=== PATIENT | female | born 1985 | race Caucasian/White ===

== ENCOUNTER 2017-06-12 09:10 | Emergency (ER) | payer BC ==
[2017-06-12 09:24] VITALS: BP 142/87; BMI 47.0
[2017-06-12] MEDS ORDERED: TORADOL 60 MG VIAL IM ONE (09:51)
--- NOTE | 2017-06-12 09:51 | DR.GENAD ---
HPI - PCP Primary Care Physician: Jose - Complaint/Symptoms Chief Complaint Doctors Comments: Patient reports that she has a history of low back pain for several has been seen by ortho in the past due psychiatica. She admits to an injury more than ten years ago and has continuted to have exacerbations of her low back. Chief Complaint:: Lower back pain - Source History Provided: Patient - Mode of Arrival Mode of Arrival: Ambulatory - Timing Onset of Chief Complaint: 06/09/17 PMH - PMH Past Medical History: Yes Past Medical History: Asthma Past Surgical History: Yes Surgical History: Cholecystectomy Past Surgical History Comment: Hernia repair. D&C - Family History History of Family Medical Conditions: Yes Family Medical History: Diabetes Mellitus, Cancer, Hypertension - Social History Does patient currently use any type of tobacco product: No Have you used tobacco products in the last 12 months: No Type of Tobacco Use: None Does any household member use tobacco: No Alcohol Use: Rarely Do you use any recreational Drugs:: Yes Lives With: Spouse Lives Where: Home - infectious screening In the last 2 months have you had wt loss of >10#?: NO Have you had fever, night sweats or hemotysis?: No Have you traveled outside the country in the last 6 months?: No Isolation: Standard ROS - Review of Systems Eyes: No Symptoms Reported ENTM: No Symptoms Reported Respiratoy: No Symptoms Reported Cardiovascular: No Symptoms Reported Gastrointestinal/Abdominal: No Symptoms Reported Genitourinary: No Symptoms Reported Neurological: No Symptoms Reported Musculoskeletal: Back Pain Integumentary: No Symptoms Reported Hematologic/Lymphatic: No Symptoms Reported Endocrine: No Symptoms Reported Psychiatric: No Symptoms Reported All Other Systems: Reviewed and Negative PE - Vital Signs Vitals: Temperature 97.8 F Pulse Rate 82 Respiratory Rate 20 Blood Pressure 142/87 O2 Sat by Pulse Oximetry 98 - General Limitations: No Limitations General Appearance: Alert, In No Apparent Distress - Head Head Exam: Normal Inspection, Atraumatic - Eyes Eye exam: Normal Appearance, PERRL, EOMI - ENT ENT Exam: Normal Exam External Ear Exam: Normal External Inspection TM/Canal Exam: Bilateral Normal Nose Exam: Normal Nose Exam Mouth Exam: Normal Inspection Throat Exam: Normal Inspection - Neck Neck Exam: Normal Inspection, Full ROM - Chest Chest Inspection: Normal Inspection - Respiratory Respiratory Exam: Normal Lung Sounds Bilat Respiratory Exam: Bilateral Clear to Auscultation - Cardiovascular Cardiovascular Exam: Regular Rate, Normal Rhythm - Abdominal Exam Abdominal Exam: Normal Inspection, Normal Bowel Sounds Abdominal Tenderness: negative: RUQ, RLQ, LUQ, LLQ, Epigastrium, Suprapubic, Diffuse, Mild, Moderate, Severe, Other - Extremities Extremities Exam: Normal Inspection, Full ROM, Tenderness (tenderness to right lower back with straight leg rasinasing) - Back Back Exam: Tenderness (Low lumbar tenderness to palpation) - Neurologic Neurological Exam: Alert, Oriented X3, CN II-XII Intact - Psychiatric Psychiatric Exam: Normal Affect - Skin Skin Exam: Warm, Dry, Intact ROR - XRAY XRAY Interpreted by: Radiologist (Lumbar spine: Negative) - Diagnosis Discharge Problem: Muscle spasm of back - Discharge Plan Condition: Stable - Follow ups/Referrals Follow ups/Referrals: IVONNE RINCON [Primary Care Provider] - 3 days - Instructions
[2017-06-12] MEDS ORDERED: TORADOL 60 MG VIAL ONE (09:54)
[2017-06-12] MEDS ORDERED: VALIUM INJ IM ONE (11:36)
[2017-06-12] MEDS ORDERED: ROCEPHIN VIAL 1 GM 1 GM in NS 50 ML IV + SPIKE MINIBAG* 50 ML IV SCH (11:45)
[2017-06-12] MEDS ORDERED: VALIUM INJ ONE (11:48)
--- NOTE | 2017-06-12 12:22 | RAD ---
HISTORY: Low back pain Study: Three views lumbar spine Comparison: None Findings: Normal alignment of the lumbar spine is maintained. Vertebral body heights are preserved. The disc spaces appear normal.No evidence for acute fracture or subluxation. Cholecystectomy clips are noted. IMPRESSION: 1. Negative lumbar radiographs. Reported By:
== END 2017-06-12 12:46 | disposition home or self-care (01) ==
LOC: ER 09:21
DX: M62.830 Muscle spasm of back (principal)
CPT/HCPCS: 72100; 96372; 99282; J1885; J3360

== ENCOUNTER 2017-12-30 14:59 | Emergency (ER) | payer BC, OTHER ==
[2017-12-30 15:13] VITALS: BMI 44.6
[2017-12-30] MEDS ORDERED: NS 1000 ML 1,000 ML ONE (16:21)
--- NOTE | 2017-12-30 16:32 | DR.GENAD ---
HPI - PCP Primary Care Physician: HARDY CASTILLO NP - Complaint/Symptoms Chief Complaint Doctors Comments: Fever, non productive cough, pelvic pain, x 5 days. She has no rhinorrhear or dysuria. Chief Complaint:: PATIENT C/O DIZZINESS, LIGHT HEADEDNESS, LOW GRADE TEMP. TEMP SPIKED TO 102.6 - Nurses notes reviewed Nurses Notes Review: Yes - Source History Provided: Patient - Mode of Arrival Mode of Arrival: Ambulatory - Timing Onset of Chief Complaint: 12/26/17 PMH - PMH Past Medical History: Yes Past Medical History: Asthma, Migraines Past Medical History Comment: ITP, AMONORRHEA, SCIATICA, EXCEMA Past Surgical History: Yes Surgical History: Cholecystectomy, Other Past Surgical History Comment: HERNIA REPAIR - Family History History of Family Medical Conditions: Yes Family Medical History: Diabetes Mellitus, Hypertension Family Medical History Comment: SPINAL STENOSIS, ARTHRITIS, GOUT, LUPUS, KIDNEY DISEASE - Social History Type of Tobacco Use: VAPE Alcohol Use: Occasionally Do you use any recreational Drugs:: No Lives With: Spouse Lives Where: Home - infectious screening In the last 2 months have you had wt loss of >10#?: YES Have you had fever, night sweats or hemotysis?: No Have you traveled outside the country in the last 6 months?: No ROS - Review of Systems Constitutional: Fever Eyes: No Symptoms Reported ENTM: No Symptoms Reported Respiratoy: Non-Productive Cough Cardiovascular: No Symptoms Reported Gastrointestinal/Abdominal: Other (suprapubic cramps) Genitourinary: No Symptoms Reported Neurological: Dizziness Musculoskeletal: No Symptoms Reported Integumentary: No Symptoms Reported Hematologic/Lymphatic: No Symptoms Reported Endocrine: No Symptoms Reported Psychiatric: No Symptoms Reported All Other Systems: Reviewed and Negative PE - Vital Signs Vitals: Temperature 99.6 F Pulse Rate 124 Respiratory Rate 20 Blood Pressure [Right Arm] 122/56 Blood Pressure 173/73 O2 Sat by Pulse Oximetry 100 - General Limitations: No Limitations General Appearance: Alert - Head Head Exam: Normal Inspection - Eyes Eye exam: Normal Appearance - ENT ENT Exam: Normal Exam - Neck Neck Exam: Normal Inspection - Chest Chest Inspection: Normal Inspection - Respiratory Respiratory Exam: Normal Lung Sounds Bilat - Cardiovascular Cardiovascular Exam: Regular Rate, +S1, +S2 - Abdominal Exam Abdominal Exam: Normal Inspection, Normal Bowel Sounds, Soft - Extremities Extremities Exam: Normal Inspection - Back Back Exam: Normal Inspection - Neurologic Neurological Exam: Alert, Oriented X3 - Psychiatric Psychiatric Exam: Normal Affect, Normal Mood - Skin Skin Exam: Warm, Dry, Intact, Normal Color ROR - Labs Reviewed Result Diagrams: 12/30/17 16:25 12/30/17 16:25 Laboratory: WBC 5.6 X10^3/uL (3.6-10.0) 12/30/17 16:25 RBC 4.96 X10^6/uL (3.5-5.4) 12/30/17 16:25 Hgb 13.8 g/dL (12.0-16.0) 12/30/17 16:25 Hct 39.7 % (36.0-47.0) 12/30/17 16:25 MCV 80.0 fL (80.0-100.0) 12/30/17 16:25 MCH 27.9 pg (27.0-34.0) 12/30/17 16:25 MCHC 34.9 g/dL (33.0-35.0) 12/30/17 16:25 RDW 13.2 % (11.6-16.5) 12/30/17 16:25 Plt Count 115 X10^3/uL (150.0-450.0) L 12/30/17 16:25 MPV 9.6 fL (7.4-11.0) 12/30/17 16:25 Neut % (Auto) 78.5 % (42.0-75.0) H 12/30/17 16:25 Lymph % (Auto) 11.8 % (21.0-51.0) L 12/30/17 16:25 [place] % (Auto) 7.5 % (0.0-13.0) 12/30/17 16:25 Eos % (Auto) 0.2 % (0.9-2.9) L 12/30/17 16:25 Baso % (Auto) 2.0 % (0.2-1.0) H 12/30/17 16:25 Neut # (Auto) 4.4 x10^3/uL (2.2-4.8) 12/30/17 16:25 Lymph # (Auto) 0.7 X10^3/uL (1.3-2.9) L 12/30/17 16:25 [place] # (Auto) 0.4 x10^3/uL (0.3-0.8) 12/30/17 16:25 Eos # (Auto) 0.0 x10^3/uL (0.0-0.2) 12/30/17 16:25 Baso # (Auto) 0.1 X10^3/uL (0.0-0.1) 12/30/17 16:25 Absolute Nucleated RBC 0.0 /100WBC 12/30/17 16:25 Sodium 138 mmol/L (136-145) 12/30/17 16:25 Corrected Sodium TNP 12/30/17 16:25 Potassium 4.0 mmol/L (3.5-5.1) 12/30/17 16:25 Chloride 101 mmol/L (98-107) 12/30/17 16:25 Carbon Dioxide 27.2 mmol/L (21-32) 12/30/17 16:25 BUN 14 mg/dL (7-18) 12/30/17 16:25 Creatinine 0.89 mg/dL (0.55-1.02) 12/30/17 16:25 Est GFR (MDRD) Af Amer > 60 (>60) 12/30/17 16:25 Est GFR (MDRD) Non-Af > 60 (>60) 12/30/17 16:25 Glucose 98 mg/dL (65-99) 12/30/17 16:25 Lactic Acid 0.7 mmol/L (0.4-2.0) 12/30/17 16:25 Calcium 8.6 mg/dL (8.5-10.1) 12/30/17 16:25 Corrected Calcium TNP 12/30/17 16:25 Total Bilirubin 0.40 mg/dL (0.2-1.0) 12/30/17 16:25 AST 31 Units/L (15-37) 12/30/17 16:25 ALT 65 Units/L (12-78) 12/30/17 16:25 Alkaline Phosphatase 76 Units/L (46-116) 12/30/17 16:25 Total Protein 8.8 g/dL (6.4-8.2) H 12/30/17 16:25 Albumin 4.0 g/dL (3.4-5.0) 12/30/17 16:25 Globulin 4.8 g/dL (2.5-4.5) H 12/30/17 16:25 Albumin/Globulin Ratio 0.8 Ratio (1.1-2.1) L 12/30/17 16:25 Specimen Type Clean catch urine 12/30/17 16:35 Urine Color Yellow (YELLOW) 12/30/17 16:35 Urine Appearance Cloudy (CLEAR) 12/30/17 16:35 Urine pH 6.0 (5.0 - 8.0) 12/30/17 16:35 Ur Specific [place] 1.010 (1.000-1.030) 12/30/17 16:35 Urine Protein 1+ (NEGATIVE) 12/30/17 16:35 Urine Glucose (UA) Negative (NEGATIVE) 12/30/17 16:35 Urine Ketones Negative (NEGATIVE) 12/30/17 16:35 Urine Occult Blood 1+ (NEGATIVE) 12/30/17 16:35 Urine Nitrite Positive (NEGATIVE) 12/30/17 16:35 Urine Bilirubin Negative (NEGATIVE) 12/30/17 16:35 Urine Urobilinogen Normal (NORMAL) 12/30/17 16:35 Ur Leukocyte Esterase 2+ (NEGATIVE) 12/30/17 16:35 Urine RBC 0-2 /HPF (NONE SEEN) 12/30/17 16:35 Urine WBC 5-10 /HPF (NONE SEEN) 12/30/17 16:35 Ur Squamous Epith Cells Few /HPF (NEGATIVE) 12/30/17 16:35 Amorphous Sediment 1+ /HPF (NEGATIVE) 12/30/17 16:35 Urine Bacteria 3+ /HPF (NEGATIVE) 12/30/17 16:35 Ur Culture Indicated? Yes/culture set up 12/30/17 16:35 S. pyogenes (TEM-PCR) Not detected (NOT DETECT) 12/30/17 16:39 - XRAY XRAY Interpreted by: Self (normal chest x-ray ) - Diagnosis Discharge Problem: UTI (urinary tract infection), Upper respiratory infection - Discharge Plan Disposition: 01 HOME, SELF-CARE Condition: Stable - Follow ups/Referrals Follow ups/Referrals: HARDY CASTILLO [Primary Care Provider] - 3 days - Instructions Instructions: Upper Respiratory Infection, Adult, [id number], Urinary Tract Infection, Adult, [id number]
[2017-12-30] MEDS ORDERED: TORADOL 30 MG VIAL IVP ONE (16:37)
[2017-12-30] MEDS ORDERED: TORADOL 30 MG VIAL ONE (16:46)
[2017-12-30 16:49] LABS: BILIRUBIN,URINE NEGATIVE (NEGATIVE); BLOOD/HEMOGLOBIN,URINE 1+ (NEGATIVE); GLUCOSE, URINE NEGATIVE (NEGATIVE); KETONES,URINE NEGATIVE (NEGATIVE); LEUKOCYTE ESTERASE ,URINE 2+ (NEGATIVE); NITRITES,URINE POSITIVE (NEGATIVE); PROTEIN,URINE 1+ (NEGATIVE); UROBILINOGEN,URINE NORMAL (NORMAL)
[2017-12-30 16:52] LABS: BASOPHILS # (AUTO) 0.1 X10^3/uL (0.0-0.1); EOSINOPHILS % (AUTO) 0.2 % (0.9-2.9); HEMATOCRIT 39.7 % (36.0-47.0); HEMOGLOBIN 13.8 g/dL (12.0-16.0); LYMPHOCYTES # (AUTO) 0.7 X10^3/uL (1.3-2.9); LYMPHOCYTES % (AUTO) 11.8 % (21.0-51.0); MEAN CORPUSCULAR HEMOGLOBIN 27.9 pg (27.0-34.0); MEAN CORPUSCULAR HGB CONC 34.9 g/dL (33.0-35.0); MEAN PLATELET VOLUME 9.6 fL (7.4-11.0); MONOCYTES # (AUTO) 0.4 x10^3/uL (0.3-0.8); MONOCYTES % (AUTO) 7.5 % (0.0-13.0); NEUTROPHILS # (AUTO) 4.4 x10^3/uL (2.2-4.8); NEUTROPHILS % (AUTO) 78.5 % (42.0-75.0); PLATELET COUNT 115 X10^3/uL (150.0-450.0); RED BLOOD COUNT 4.96 X10^6/uL (3.5-5.4); RED CELL DISTRIBUTION WIDTH 13.2 % (11.6-16.5); WHITE BLOOD COUNT 5.6 X10^3/uL (3.6-10.0)
--- NOTE | 2017-12-30 17:03 | RAD ---
Examination: Chest, PA and lateral views History: Dizzy and fever Comparison reference 08/11/2016. Findings: Continued normal heart size with clear lungs and pleural spaces. Impression: No change; no acute findings. Reported By:
[2017-12-30 17:04] LABS: LACTIC ACID 0.7 mmol/L (0.4-2.0)
[2017-12-30 17:07] LABS: BLOOD UREA NITROGEN 14 mg/dL (7-18); CALCIUM 8.6 mg/dL (8.5-10.1); CARBON DIOXIDE 27.2 mmol/L (21-32); CHLORIDE 101 mmol/L (98-107); CREATININE 0.89 mg/dL (0.55-1.02); SODIUM 138 mmol/L (136-145); eGFR BLACK RACES > 60 (>60); eGFR NON BLACK RACES > 60 (>60)
[2017-12-30 17:08] LABS: APPEARANCE,URINE CLOUDY (CLEAR); COLOR,URINE YELLOW (YELLOW)
[2017-12-30 17:23] LABS: RBC,URINE 0-2 /HPF (NONE SEEN)
[2017-12-30 17:23] LABS: ALANINE AMINOTRANSFERASE 65 Units/L (12-78); ALKALINE PHOSPHATASE 76 Units/L (46-116); ASPARTATE AMINO TRANSFERASE 31 Units/L (15-37); TOTAL PROTEIN 8.8 g/dL (6.4-8.2)
[2017-12-30 17:24] LABS: AMORPHOUS SEDIMENT,UR 1+ /HPF (NEGATIVE); BACTERIA,URINE 3+ /HPF (NEGATIVE); SQUAMOUS EPITHELIAL CELL,UR FEW /HPF (NEGATIVE)
[2017-12-30 17:31] VITALS: BP 122/56
[2017-12-31] MEDS ORDERED: LEVAQUIN TAB 500 MG PO ONE (17:30)
== END 2017-12-30 18:45 | disposition home or self-care (01) ==
LOC: ER 14:59
DX: N39.0 Urinary tract infection, site not specified (principal); J06.9 Acute upper respiratory infection, unspecified; B96.29 Other Escherichia coli [E. coli] as the cause of diseases classified elsewhere
CPT/HCPCS: 36415; 71046; 80053; 81001; 83605; 85025; 87040; 87086; 87088; 87186; 87651; 96365; 99282; 99283; A4222; J1885

== ENCOUNTER 2018-01-05 14:20 | Emergency (ER) | payer OTHER ==
[2018-01-05 14:29] VITALS: BP 129/68; BMI 46.7
[2018-01-05 14:56] LABS: BILIRUBIN,URINE NEGATIVE (NEGATIVE); BLOOD/HEMOGLOBIN,URINE NEGATIVE (NEGATIVE); GLUCOSE, URINE NEGATIVE (NEGATIVE); KETONES,URINE NEGATIVE (NEGATIVE); LEUKOCYTE ESTERASE ,URINE 1+ (NEGATIVE); NITRITES,URINE NEGATIVE (NEGATIVE); PROTEIN,URINE NEGATIVE (NEGATIVE); UROBILINOGEN,URINE NORMAL (NORMAL)
[2018-01-05 14:59] LABS: APPEARANCE,URINE CLEAR (CLEAR); COLOR,URINE YELLOW (YELLOW)
[2018-01-05 15:21] LABS: AMORPHOUS SEDIMENT,UR TRACE /HPF (NEGATIVE); BACTERIA,URINE TRACE /HPF (NEGATIVE); RBC,URINE 0-2 /HPF (NONE SEEN); SQUAMOUS EPITHELIAL CELL,UR MODERATE /HPF (NEGATIVE)
--- NOTE | 2018-01-05 15:46 | DR.URINEF ---
HPI - Time Seen Time seen: 15:40 - PCP Primary Care Physician: JONATHAN - HPI Comment HPI Comment: CURRENTLY ON MED FOR UTI. NOT GETTING BETTER. MUSCLES HURTING. - Complaint Chief Complaint Doctors Comments: FEVER, HEADACHE, WEAKNESS, FATIGUE AND DYSURIA. SICK FOR SEVERAL DAYS. Chief Complaint:: PT C/O REVURRENT UTI. PT WAS DIAGNOSED WITH UTI LAST MONDAY AND WAS GIVEN LEVAQUIN. PT STATES SHE IS STILL BATTLING WITH FEVER, AND UTI SYMPTOMS. PT ALSO STATES SHE IS HAVING A HEADACHE AND FATIGUE. - Reviewed Nurses Notes Reviewed: Yes - Source History Provided: Patient - Mode of Arrival Mode of Arrival: Ambulatory - Timing Onset of Chief Complaint: 12/26/17 - Duration Duration: Constant Duration: Days - Context Onset: Spontaneous History of: UTI - Quality Pain is: Burning - Severity Pain: Moderate (MUSCLE ACHES.) Inability to Void: None - Location Pain Location: Abdomen - Associated Signs and Symptoms Associated signs and symptoms: None PMH - PMH Past Medical History: Yes Past Medical History: Asthma, Migraines Past Medical History Comment: ITP, EXEMA Past Surgical History: Yes Surgical History: Cholecystectomy, Other - Family History History of Family Medical Conditions: Yes Family Medical History: Diabetes Mellitus, Hypertension - Social History Does patient currently use any type of tobacco product: No Have you used tobacco products in the last 12 months: Yes Type of Tobacco Use: Cigarettes Does any household member use tobacco: Yes Alcohol Use: None Do you use any recreational Drugs:: No Lives With: Family Lives Where: Home - infectious screening In the last 2 months have you had wt loss of >10#?: NO Have you had fever, night sweats or hemotysis?: Yes Have you traveled outside the country in the last 6 months?: No Isolation: Standard ROS - Review of Systems Constitutional: Weakness, Fatigue. negative: Chills, Fever Eyes: No Symptoms Reported ENTM: No Symptoms Reported Respiratoy: No Symptoms Reported Cardiovascular: No Symptoms Reported Gastrointestinal/Abdominal: Abdominal Pain Genitourinary: Dysuria Neurological: Headache Musculoskeletal: Back Pain, Muscle Pain Integumentary: No Symptoms Reported Hematologic/Lymphatic: No Symptoms Reported Endocrine: No Symptoms Reported All Other Systems: Reviewed and Negative PE - Vital Signs Vitals: Temperature 99.0 F Pulse Rate 94 Respiratory Rate 20 Blood Pressure [Right Arm] 122/56 Blood Pressure 129/68 O2 Sat by Pulse Oximetry 97 - General Limitations: No Limitations General Appearance: Alert - Head Head Exam: Normal Inspection - Eyes Eye exam: Normal Appearance - ENT ENT Exam: Normal External Ear Exam - Neck Neck Exam: Trachea Midline - Chest Chest Inspection: Symmetric Chest Wall Rise - Respiratory Respiratory Exam: Normal Lung Sounds Bilat Respiratory Exam: Bilateral Clear to Auscultation - Cardiovascular Cardiovascular Exam: Regular Rate, Normal Rhythm, Normal Heart Sounds - Abdominal Exam Abdominal Exam: Normal Bowel Sounds, Soft. negative: Tenderness - Rectal Rectal Exam: Deferred - Genitourinary External Exam: Female: Deferred : Speculum Exam (Female): Deferred : Bimanual Exam (female): Deferred - Extremities Extremities Exam: Normal Inspection - Neurologic Neurological Exam: Alert - Psychiatric Psychiatric Exam: Normal Affect, Normal Mood - Skin Skin Exam: Normal Color MDM - Differential Diagnosis Differential Diagnosis: Pyelonephritis, Urolithiasis, UTI Other Differential Diagnosis: MUSCULOSKELETAL PAIN. Course - Treatment Treatment: SEE ORDERS. - Education/Counseling Education/Counseling: Patient, Education Educated On: Treatment, Diagnosis, Needs for Follow Up ROR - Labs Reviewed Laboratory Results Reviewed?: Yes Result Diagrams: 01/05/18 15:53 01/05/18 15:53 Laboratory: WBC 6.3 X10^3/uL (3.6-10.0) 01/05/18 15:53 RBC 4.49 X10^6/uL (3.5-5.4) 01/05/18 15:53 Hgb 12.6 g/dL (12.0-16.0) 01/05/18 15:53 Hct 35.7 % (36.0-47.0) L 01/05/18 15:53 MCV 79.5 fL (80.0-100.0) L 01/05/18 15:53 MCH 28.1 pg (27.0-34.0) 01/05/18 15:53 MCHC 35.3 g/dL (33.0-35.0) H 01/05/18 15:53 RDW 12.9 % (11.6-16.5) 01/05/18 15:53 Plt Count 267 X10^3/uL (150.0-450.0) 01/05/18 15:53 MPV 8.3 fL (7.4-11.0) 01/05/18 15:53 Neut % (Auto) 55.6 % (42.0-75.0) 01/05/18 15:53 Lymph % (Auto) 33.3 % (21.0-51.0) 01/05/18 15:53 [place] % (Auto) 8.9 % (0.0-13.0) 01/05/18 15:53 Eos % (Auto) 1.5 % (0.9-2.9) 01/05/18 15:53 Baso % (Auto) 0.7 % (0.2-1.0) 01/05/18 15:53 Neut # (Auto) 3.5 x10^3/uL (2.2-4.8) 01/05/18 15:53 Lymph # (Auto) 2.1 X10^3/uL (1.3-2.9) 01/05/18 15:53 [place] # (Auto) 0.6 x10^3/uL (0.3-0.8) 01/05/18 15:53 Eos # (Auto) 0.1 x10^3/uL (0.0-0.2) 01/05/18 15:53 Baso # (Auto) 0.0 X10^3/uL (0.0-0.1) 01/05/18 15:53 Absolute Nucleated RBC 0.0 /100WBC 01/05/18 15:53 Sodium 141 mmol/L (136-145) 01/05/18 15:53 Corrected Sodium TNP 01/05/18 15:53 Potassium 4.3 mmol/L (3.5-5.1) 01/05/18 15:53 Chloride 105 mmol/L (98-107) 01/05/18 15:53 Carbon Dioxide 26.2 mmol/L (21-32) 01/05/18 15:53 BUN 11 mg/dL (7-18) 01/05/18 15:53 Creatinine 0.78 mg/dL (0.55-1.02) 01/05/18 15:53 Est GFR (MDRD) Af Amer > 60 (>60) 01/05/18 15:53 Est GFR (MDRD) Non-Af > 60 (>60) 01/05/18 15:53 Glucose 90 mg/dL (65-99) 01/05/18 15:53 Calcium 8.5 mg/dL (8.5-10.1) 01/05/18 15:53 Corrected Calcium TNP 01/05/18 15:53 Total Bilirubin 0.30 mg/dL (0.2-1.0) 01/05/18 15:53 AST 22 Units/L (15-37) 01/05/18 15:53 ALT 52 Units/L (12-78) 01/05/18 15:53 Alkaline Phosphatase 80 Units/L (46-116) 01/05/18 15:53 Total Protein 8.1 g/dL (6.4-8.2) 01/05/18 15:53 Albumin 3.4 g/dL (3.4-5.0) 01/05/18 15:53 Globulin 4.7 g/dL (2.5-4.5) H 01/05/18 15:53 Albumin/Globulin Ratio 0.7 Ratio (1.1-2.1) L 01/05/18 15:53 Specimen Type Random urine 01/05/18 14:45 Urine Color Yellow (YELLOW) 01/05/18 14:45 Urine Appearance Clear (CLEAR) 01/05/18 14:45 Urine pH 7.0 (5.0 - 8.0) 01/05/18 14:45 Ur Specific [place] 1.010 (1.000-1.030) 01/05/18 14:45 Urine Protein Negative (NEGATIVE) 01/05/18 14:45 Urine Glucose (UA) Negative (NEGATIVE) 01/05/18 14:45 Urine Ketones Negative (NEGATIVE) 01/05/18 14:45 Urine Occult Blood Negative (NEGATIVE) 01/05/18 14:45 Urine Nitrite Negative (NEGATIVE) 01/05/18 14:45 Urine Bilirubin Negative (NEGATIVE) 01/05/18 14:45 Urine Urobilinogen Normal (NORMAL) 01/05/18 14:45 Ur Leukocyte Esterase 1+ (NEGATIVE) 01/05/18 14:45 Urine RBC 0-2 /HPF (NONE SEEN) 01/05/18 14:45 Urine WBC 0-2 /HPF (NONE SEEN) 01/05/18 14:45 Ur Squamous Epith Cells Moderate /HPF (NEGATIVE) 01/05/18 14:45 Amorphous Sediment Trace /HPF (NEGATIVE) 01/05/18 14:45 Urine Bacteria Trace /HPF (NEGATIVE) 01/05/18 14:45 Ur Culture Indicated? No/not indicated 01/05/18 14:45 Influenza Type A (PCR) Invalid-recollect (NEGATIVE) 01/05/18 16:15 Influenza Type B (PCR) Invalid-recollect (NEGATIVE) 01/05/18 16:15 - XRAY XRAY Interpreted by: Radiologist XRAY Findings: REPORT DISCUSS WITH PATIENT. - Diagnosis Discharge Problem: Generalized pain, Myalgia Headache Qualifiers: Headache type: unspecified Headache chronicity pattern: acute headache Intractability: not intractable Qualified Code(s): R51 - Headache Abdominal pain Qualifiers: Abdominal location: generalized Qualified Code(s): R10.84 - Generalized abdominal pain - Discharge Plan Disposition: 01 HOME, SELF-CARE Condition: Stable Prescriptions: Ketorolac Tromethamine [Toradol Tab] 10 mg PO BID PRN #15 tab PRN Reason: Pain Ranitidine HCl [ZANTAC TAB 150 MG *] 150 mg PO BID #60 tab - Follow ups/Referrals Follow ups/Referrals: HARDY CASTILLO [Primary Care Provider] - 3 days - Instructions Instructions: Abdominal Pain, Adult, [id number], Musculoskeletal Pain, General Headache Without Cause, [id number] Additional Instructions: RETURN TO ED IF WORSE.
[2018-01-05 16:08] LABS: BASOPHILS % (AUTO) 0.7 % (0.2-1.0); EOSINOPHILS # (AUTO) 0.1 x10^3/uL (0.0-0.2); EOSINOPHILS % (AUTO) 1.5 % (0.9-2.9); HEMATOCRIT 35.7 % (36.0-47.0); HEMOGLOBIN 12.6 g/dL (12.0-16.0); LYMPHOCYTES # (AUTO) 2.1 X10^3/uL (1.3-2.9); LYMPHOCYTES % (AUTO) 33.3 % (21.0-51.0); MEAN CORPUSCULAR HEMOGLOBIN 28.1 pg (27.0-34.0); MEAN CORPUSCULAR HGB CONC 35.3 g/dL (33.0-35.0); MEAN CORPUSCULAR VOLUME 79.5 fL (80.0-100.0); MEAN PLATELET VOLUME 8.3 fL (7.4-11.0); MONOCYTES # (AUTO) 0.6 x10^3/uL (0.3-0.8); MONOCYTES % (AUTO) 8.9 % (0.0-13.0); NEUTROPHILS # (AUTO) 3.5 x10^3/uL (2.2-4.8); NEUTROPHILS % (AUTO) 55.6 % (42.0-75.0); PLATELET COUNT 267 X10^3/uL (150.0-450.0); RED BLOOD COUNT 4.49 X10^6/uL (3.5-5.4); RED CELL DISTRIBUTION WIDTH 12.9 % (11.6-16.5); WHITE BLOOD COUNT 6.3 X10^3/uL (3.6-10.0)
--- NOTE | 2018-01-05 16:11 | RAD ---
HISTORY: Abdominal pain, UTI Study: Acute abdominal series Comparison: 08/21/2016 Findings: The trachea is midline. The cardiac silhouette is unremarkable. The lungs are clear without focal i nfiltrate or effusion. The bony thorax is unremarkable. Flat plate and upright evaluation of the abdomen demonstrates a normal bowel gas pattern. A moderate amount of stool is noted within the ascending and proximal transverse colon. Cholecystectomy clips ar e identified within the right upper quadrant. No pathological soft tissue mass or calcification can be observed. The bony structures are grossly intact. IMPRESSION: 1. No acute cardiopulmonary disease. 2. No evidence for acute abdominal pathology identified. Reported By:
[2018-01-05 16:14] LABS: ALANINE AMINOTRANSFERASE 52 Units/L (12-78); ALBUMIN 3.4 g/dL (3.4-5.0); ALKALINE PHOSPHATASE 80 Units/L (46-116); ASPARTATE AMINO TRANSFERASE 22 Units/L (15-37); BLOOD UREA NITROGEN 11 mg/dL (7-18); CALCIUM 8.5 mg/dL (8.5-10.1); CARBON DIOXIDE 26.2 mmol/L (21-32); CHLORIDE 105 mmol/L (98-107); CREATININE 0.78 mg/dL (0.55-1.02); SODIUM 141 mmol/L (136-145); TOTAL PROTEIN 8.1 g/dL (6.4-8.2); eGFR BLACK RACES > 60 (>60); eGFR NON BLACK RACES > 60 (>60)
== END 2018-01-05 17:34 | disposition home or self-care (01) ==
LOC: ER 14:32
DX: R10.84 Generalized abdominal pain (principal); R51 Headache; R52 Pain, unspecified; M79.1 Myalgia
CPT/HCPCS: 36415; 74022; 80053; 81001; 85025; 87502; 99282